=== PATIENT | female | born 1995 | race Caucasian/White ===

== ENCOUNTER 2022-02-10 08:23 | Emergency (ER) | payer OTHER, BC, SELFPAY ==
[2022-02-10 08:33] VITALS: BP 136/88; PULSE 100; RESP 18; TEMP 36.1; O2SAT 100
--- NOTE | 2022-02-10 08:35 | ED.URI ---
HPI - URI/Sore Throat General Chief Complaint: Upper Respiratory Infection Stated Complaint: dry cough, some phlem Time Seen by Provider: 02/10/22 08:35 Source: patient Mode of arrival: ambulatory Limitations: no limitations History of Present Illness HPI Narrative: Ms. Painting is a 26-year-old female patient presenting to the clinic today with complaints of a cough with some phlegm. She reports that her nose is runny at times. She denies any fever or chills. She is 36 weeks and states around this time every she has had bronchitis and she wants to be treated prior to getting worse. MD elicited complaint: sore throat and nasal congestion Related Data Allergies Allergy/AdvReac Type Severity Reaction Status Date / Time No Known Allergies Allergy Unverified 02/10/22 08:52 Review of Systems Review of Systems: Pertinent positives per HPI. Patient denies any fever, chills, rash, headache, visual changes, dizziness, shortness of breath, chest pain, palpitations, nausea, vomiting, diarrhea, constipation, abdominal pain, or any urinary issues. PMFSH Comments At the time of my signature, I reviewed and agree with the nursing past medical, surgical, social, and family history. There is no relevant family history pertinent to the patient complaint. Exam Narrative: General: Well-developed, well nourished, in no apparent distress Head: Normocephalic, atraumatic Eyes: Pupils equally round and reactive to light bilaterally, EOM intact, sclera and conjunctive clear, no discharge, lids normal Ears: TMs intact and clear, ear canals clear, no drainage, grossly hearing normal. Nose: Nares patent, clear nasal discharge, no inflammation, no sinus tenderness. Mouth: Oral pharynx without lesions or masses, good dentition, MMM. postnasal drip Neck: Supple, trachea midline, no enlargement of anterior or posterior cervical nodes, no thyroid masses or goiter palpable. Cardio: Regular rate and rhythm, s1 and s2 normal, no murmur appreciated. Resp: Clear to auscultation bilaterally, no rhonchi, rales, wheezing or rubs Course Course Emergency Course: Portions of this record may have been created with voice recognition software. Level of Care: Express Care Visit Vital Signs Vital signs: Vital Signs Temperature 36.1 C L 02/10/22 08:33 Pulse Rate 100 02/10/22 08:33 Respiratory Rate 18 02/10/22 08:33 Blood Pressure 136/88 02/10/22 08:33 Pulse Oximetry 100 02/10/22 08:33 Oxygen Delivery Room Air 02/10/22 08:33 Temperature 36.1 C L 02/10/22 08:33 Pulse Rate 100 02/10/22 08:33 Respiratory Rate 18 02/10/22 08:33 Blood Pressure 136/88 02/10/22 08:33 Pulse Oximetry 100 02/10/22 08:33 Oxygen Delivery Room Air 02/10/22 08:33 Vital signs reviewed MDM - URI/Sore Throat MDM Narrative Medical decision making narrative: At the time of visit patient is resting comfortably on the exam table. I suspect the patient has rhinitis causing a cough. Supportive measures were discussed with the patient she voiced understanding of discharge instructions. Prescription for albuterol inhaler was given to the patient Differential Diagnosis Differential diagnosis: Likely upper respiratory infection, otitis media, sinusitis, viral infection, bronchitis, influenza, pharyngitis and other Discharge Plan Discharge Clinical Impression: Cough, Rhinitis Patient Disposition: Home, Self-Care Condition: Stable Instructions: Antibiotic Form, Allergic Rhinitis (ED), Postnasal Drip (DC) Additional Instructions: Take prescription medications only as prescribed-albuterol inhaler Increase fluids and stay well hydrated Tylenol for pain/fever Flonase and OTC antihistamines as directed- Zyrtec or Claritan Vicks vapor rub to open sinuses Sinus rinses for congestion Cepacol spray, cough drops, throat lozenges, warm tea with honey/lemon, gargle salt water to soothe throat BRAT diet for diarrh
== END 2022-02-10 08:46 | disposition home or self-care (01) ==
PROVIDERS: Emergency Provider Nurse Practitioner Family
DX: O99.513 Diseases of the respiratory system complicating pregnancy, third trimester (principal); Z3A.36 36 weeks gestation of pregnancy; R05.9 Cough, unspecified; J31.0 Chronic rhinitis; E11.9 Type 2 diabetes mellitus without complications
CPT/HCPCS: 99213; G0463

== ENCOUNTER 2022-04-13 08:27 | Emergency (ER) | payer OTHER, SELFPAY ==
[2022-04-13 08:37] VITALS: BP 151/97; PULSE 93; RESP 16; TEMP 36.8; O2SAT 98
--- NOTE | 2022-04-13 08:46 | ED.URI ---
HPI - URI/Sore Throat General Chief Complaint: Upper Respiratory Infection Stated Complaint: Cough Time Seen by Provider: 04/13/22 08:46 Source: patient Mode of arrival: ambulatory Limitations: no limitations History of Present Illness HPI Narrative: 26-year-old female presents with complaint of cough for 3 weeks. Reports shortness of breath with exertion. No recent fever. Did COVID test at home and were negative. reports that she is coughing all day. Has a 7-week-old and is breast-feeding and cannot take a lot of the [id number] cough medications due to her . All systems reviewed and negative except as noted above. Related Data Home Medications Medication Instructions Recorded Confirmed insulin lispro 100 unit/mL 100 unit subcut DIRECTED 02/10/22 04/13/22 subcutaneous solution (Humalog U-100 Insulin) metformin 500 mg tablet,extended 500 mg PO DAILY 02/10/22 04/13/22 release 24 hr blood-glucose sensor (Dexcom G6 04/13/22 04/13/22 Sensor device) levothyroxine 112 mcg tablet 112 mcg PO DAILY 04/13/22 04/13/22 sertraline 50 mg tablet 50 mg PO DAILY 04/13/22 04/13/22 Allergies Allergy/AdvReac Type Severity Reaction Status Date / Time No Known Allergies Allergy Verified 04/13/22 08:36 Review of Systems Review of Systems: CONSTITUTIONAL: Denies fever, chills, or sweats. EYES: Denies visual changes, redness, or discharge. ENT: Denies rhinorrhea, congestion, sore throat, or otalgia. CARDIOVASCULAR: Denies chest pain, palpitations, or edema. RESPIRATORY: Reports cough, shortness of breath with exertion. GASTROINTESTINAL: Denies abdominal pain, nausea, vomiting, or diarrhea. GENITOURINARY: Denies dysuria or hematuria. SKIN: Denies rash or itching. MUSCULOSKELETAL: Denies back pain, joint pain, or myalgia. NEUROLOGIC: Denies headache, numbness, or weakness. PSYCHIATRIC: Denies anxiety or depression. All other systems reviewed are negative, except as documented in HPI. PMFSH Comments At time of signature, agree with nursing past medical, surgical, social and family history. There is no relevant family history pertinent to the presenting complaint. Exam Narrative: GENERAL: This is a well-nourished, well-developed patient, in no apparent distress. HEAD: normocephalic, atraumatic. EYES: PERRL. Sclera clear/white. Vision is grossly intact. EARS: External ears normal, auditory canals clear and without drainage, TMs normal without perforation. Hearing grossly intact. NOSE: External nose normal with no obvious nasal discharge, nares without redness, no rhinorrhea. THROAT: Mucous membranes moist, posterior pharynx clear. NECK: Neck supple, non-tender without lymphadenopathy, masses or thyromegaly. CARDIOVASCULAR: Regular rate and rhythm without murmurs, gallops, or rubs. RESPIRATORY: Mildly decreased lower lung de leon. No wheezes, rales, or rhonchi. SKIN: warm, Dry, intact with no suspicious lesions or rash, good texture and turgor. NEURO: awake, alert, and oriented to person, place and time. There were no obvious focal neurologic abnormalities. EXTREMITIES: No joint tenderness, effusion, or edema noted. Course Course Level of Care: Express Care Visit Vital Signs Vital signs: Vital Signs Temperature 36.8 C 04/13/22 08:37 Pulse Rate 93 04/13/22 08:37 Respiratory Rate 16 04/13/22 08:37 Blood Pressure 151/97 H 04/13/22 08:37 Pulse Oximetry 98 04/13/22 08:37 Oxygen Delivery Room Air 04/13/22 08:37 Temperature 36.8 C 04/13/22 08:37 Pulse Rate 93 04/13/22 08:37 Respiratory Rate 16 04/13/22 08:37 Blood Pressure 151/97 H 04/13/22 08:37 Pulse Oximetry 98 04/13/22 08:37 Oxygen Delivery Room Air 04/13/22 08:37 Reviewed , reports that her blood pressure has been elevated since giving to her son and is being monitored by her grades 9 12 tutor MDM - URI/Sore Throat MDM Narrative Medical decision making narrative: Patient is aware of diagno
== END 2022-04-13 09:10 | disposition home or self-care (01) ==
PROVIDERS: Emergency Provider Nurse Practitioner Family
DX: J20.9 Acute bronchitis, unspecified (principal); E78.00 Pure hypercholesterolemia, unspecified; E11.9 Type 2 diabetes mellitus without complications; Z79.4 Long term (current) use of insulin; Z96.41 Presence of insulin pump (external) (internal)
CPT/HCPCS: 99213; G0463

== ENCOUNTER 2023-03-06 08:10 | Emergency (ER) | payer OTHER, MEDICAID, SELFPAY ==
--- NOTE | ~2023-03-06 | XR_ITS ---
EXAMINATION: XR finger 1st LT min 2V INDICATION: Left first finger pain TECHNIQUE: Three views of the left first finger are obtained. COMPARISON: None available FINDINGS: Bone alignment is normal. There is no fracture. There is mild soft tissue swelling of the f irst finger. The joint spaces are maintained. IMPRESSION: 1. No acute osseous abnormality. Reviewed, dictated and finalized at location [facility] [employer]
[2023-03-06 08:24] VITALS: BP 132/98; PULSE 95; RESP 18; TEMP 37; O2SAT 100
[2023-03-06 08:33] VITALS: BP 132/98; PULSE 95; RESP 18; TEMP 37; O2SAT 100
--- NOTE | 2023-03-06 08:41 | ED.UPPEXIN ---
HPI - Extremity Injury (Upper) General Chief Complaint: Extremity Injury, Upper Stated Complaint: Injured thumb Time Seen by Provider: 03/06/23 08:44 Source: patient and RN notes reviewed Mode of arrival: ambulatory Limitations: no limitations History of Present Illness HPI narrative: 27-year-old female presents with concern for injury to the 1st digit of her left hand. Reports this morning she accidentally slammed the digit in her car door. She reports pain at the DIP joint and just below the joint with an abrasion. She denies any bleeding under the fingernail. She reports pain with bending the digit and a slight sense of tingling. MD complaint: injury to: left and finger Related Data Home Medications Medication Instructions Recorded Confirmed insulin lispro 100 unit/mL 100 unit subcut DIRECTED 02/10/22 03/06/23 subcutaneous solution (Humalog U-100 Insulin) blood-glucose sensor (Dexcom G6 04/13/22 04/13/22 Sensor device) levothyroxine 112 mcg tablet 112 mcg PO DAILY 04/13/22 03/06/23 escitalopram oxalate 10 mg tablet 10 mg PO DAILY 03/06/23 03/06/23 Allergies Allergy/AdvReac Type Severity Reaction Status Date / Time No Known Allergies Allergy Verified 03/06/23 08:25 Review of Systems Review of Systems: CONSTITUTIONAL: Denies malaise, chills, sweats, or fever. CARDIOVASCULAR: Denies chest pain, palpitations, or edema. RESPIRATORY: Denies cough or dyspnea. SKIN: Denies rash or itching, bruising, redness. Reports abrasion to the dorsal aspect of the 1st digit of left hand MUSCULOSKELETAL: Reports pain and swelling to the 1st digit of left hand NEUROLOGIC: Denies numbness, weakness All systems reviewed & are unremarkable except as noted in HPI and below PMFSH Comments At time of signature, agree with nursing past medical, surgical, social and family history. There is no relevant family history pertinent to the presenting complaint Exam Narrative: GENERAL: Well-appearing, well-nourished, and in no acute distress. HEAD: Normocephalic EYES: PERRLA, conjunctivae clear NECK: Supple. CHEST: Speaks in full sentences. No respiratory distress. HEART: Regular rate and rhythm. Normal and equal peripheral pulses. EXTREMITIES: 1st digit of left hand has grossly normal strength, reports tingling sensation. 5/5 strength with digit flexion, extension. Range of motion limited with flexion. No clubbing, cyanosis. Mild digit edema and tenderness noted noted. No scissoring. Normal thumb opposition. Good capillary refill and radial pulse. Distal capillary refill less than 3 seconds. Patient is right/left hand dominant SKIN: Warn, dry, intact, pink. 0.5 cm superficial abrasion noted the dorsal aspect of the 1st digit of the left hand without surrounding erythema, edema, induration or drainage NEURO: Alert and oriented x3. PSYCH: Normal mood and affect Course Course Emergency Course: Patient is aware of diagnosis, understands and agrees to treatment plan. Anticipatory guidance given. Patient agrees to follow-up as directed and is aware of reasons to seek care at the emergency department. Portions of this record may have been created with voice recognition software Level of Care: Express Care Visit Vital Signs Vital signs: Vital Signs Temperature 98.6 F 03/06/23 08:24 Pulse Rate 95 03/06/23 08:24 Respiratory Rate 18 03/06/23 08:24 Blood Pressure 132/98 H 03/06/23 08:24 Pulse Oximetry 100 03/06/23 08:24 Oxygen Delivery Room Air 03/06/23 08:24 Temperature 98.6 F 03/06/23 08:33 Pulse Rate 95 03/06/23 08:33 Respiratory Rate 18 03/06/23 08:33 Blood Pressure 132/98 H 03/06/23 08:33 Pulse Oximetry 100 03/06/23 08:33 Oxygen Delivery Room Air 03/06/23 08:33 Reviewed. MDM - Extremity Injury (Upper) MDM Narrative Medical decision making narrative: Patients injury and pain is consistent with musculoskeletal etiology. No signs of neurological or vascular compromise o
== END 2023-03-06 08:55 | disposition home or self-care (01) ==
PROVIDERS: Emergency Provider Nurse Practitioner
DX: S60.012A Contusion of left thumb without damage to nail, initial encounter (principal); X58.XXXA Exposure to other specified factors, initial encounter; E11.9 Type 2 diabetes mellitus without complications; Z79.4 Long term (current) use of insulin; E03.9 Hypothyroidism, unspecified
CPT/HCPCS: 29130; 73140; 99213; G0463